=== PATIENT | female | born 1995 | race Hispanic/Latino ===

== ENCOUNTER 2018-09-25 09:23 | Outpatient (CLI) | payer OTHER ==
--- NOTE | 2018-09-25 11:48 | ULT ---
OBSTETRIC SONOGRAM: HISTORY: Second trimester. evaluation. FINDINGS: Multiple transabdominal sonographic views of the gravid uterus show a single intrauterine gestation, in variable presentation. The cervix is closed and 3.5 cm. Amniotic fluid is within normal limits. Grade 0 placenta is anterior. No gross intracranial abnormalities. Four-chamber heart shows motion at 147 beats per minute. spine and kidneys are intact as visualized. Three-vessel cord shows a normal insertion. Measurements are as follows: Biparietal diameter: 19 weeks 2 days Head circumference: 19 weeks 2 days Abdominal circumference: 19 weeks 4 days Femur length: 20 weeks 6 days Estimated date of delivery, based on today's sonogram, is 02/13/2019. Hadlock percentile is 96%. IMPRESSION: Single viable intrauterine gestation with estimated gestational age, based on today's sonogram, of 19 weeks 6 days. POS: RADHA
== END 2018-09-25 09:24 | disposition home or self-care (01) ==
LOC: BICULT 09:23
PROVIDERS: ATTEND Family Medicine
DX: Z34.82 Encounter for supervision of other normal pregnancy, second trimester (principal); Z3A.19 19 weeks gestation of pregnancy
CPT/HCPCS: 76805

== ENCOUNTER 2018-12-18 00:48 | Day surgery (SDC) | payer OTHER ==
--- NOTE | 2018-12-18 01:39 | PDOC.LDHP ---
Labor and Delivery H&P Chief complaint: decreased movement HPI: 23 y/o at 31w6d, patient of Dr. Catrachita Goldberg, presents with decreased FM this evening. Denies VB, LOF, ctx, or other concerns. ROS neg for HEENT, CV, pulm, GI, , neuro, psych, skin, musculoskeletal, or constitutional symptoms other than mentioned above. OB History Details: 3 prior LTCS Past Medical History: None Current medications: pre-marcus vitamins Previous surgical history: low tranverse CS (x3), cholecystectomy Allergies/Adverse Reactions: Allergies Allergy/AdvReac Type Severity Reaction Status Date / Time No Known Allergies Allergy Verified 10/23/14 05:43 Social history: none - Physical Exam Vital signs reviewed and normal: yes General: NAD, resting Lungs: nonlabored breathing Abdomen: gravid Extremeties: no edema FHT: category 1 (140s, mod variability, + accels, no decels) [place] contractions every: none - Assessment 23 y/o at 31w6d with decreased FM but reassuring status with reactive NST. Has felt baby move since arrival. - Plan -: D/c home with precautions. Advised to keep all appointments. Next appt .
[2018-12-18 02:19] VITALS: BMI 35.1
== END 2018-12-18 01:53 | disposition home health service (06) ==
LOC: L&D/OP 00:48
PROVIDERS: ATTEND Family Medicine
DX: O36.8130 Decreased fetal movements, third trimester, not applicable or unspecified (principal); Z3A.31 31 weeks gestation of pregnancy
CPT/HCPCS: 99282

== ENCOUNTER 2018-12-30 00:11 | Day surgery (SDC) | payer OTHER ==
[2018-12-30 00:50] VITALS: BP 128/74; TEMP 98.6; BMI 36.2
[2018-12-30 01:14] LABS: Amnisure Test No Membranes Rupture (No Rupture)
[2018-12-30 01:15] LABS: Amnisure Internal Control QC ACCEPTABLE (ACCEPTABLE)
--- NOTE | 2018-12-30 02:57 | SS ---
DATE OF ADMISSION: 12/30/2018 DATE OF DISCHARGE: 12/30/2018 REGULAR PHYSICIAN: Catrachita Goldberg M.D. EVALUATING PHYSICIAN: Maulik Love M.D. CHIEF COMPLAINT: Suspected leakage of fluid at home. HISTORY OF PRESENT ILLNESS: Ms. Chavira is a 23-year-old , G7, P3, AB 3 with an estimated date of confinement of 02/19/2019, who presents complaining of a small amount of suspected loss of fluid at home this evening. She denies vaginal bleeding or decreased movement. Her care has been with Dr. Catrachiat Goldberg. She is currently on Garret for a history of deliveries. She has an elective repeat section scheduled for 39 weeks. PAST OBSTETRICAL HISTORY: Includes 3 previous sections at 35, 36 and 39 weeks respectively. PAST SURGERY HISTORY: None. PAST SURGICAL HISTORY: x3 as well as gallbladder removal. CURRENT MEDICATIONS: Include: 1. vitamins. 2. Garret shot each week. ALLERGIES: NO KNOWN ALLERGIES. SOCIAL HISTORY: She denies tobacco, alcohol, or drug use. FAMILY HISTORY: Unremarkable. REVIEW OF SYSTEMS: Negative for nausea, vomiting, fever, chills, vaginal bleeding or decreased movement. PHYSICAL EXAMINATION: In triage, her vital signs were stable and she is afebrile. GENERAL: She is pleasant and in no acute distress. ABDOMEN: Soft, nontender, and gravid. heart rate tracing is stable and reassuring. No significant uterine contractions were seen. Pelvic exam shows the cervix to be closed, long, but soft. The vertex is presenting, but is ballotable. AmniSure returns showing no evidence of ruptured membranes. ASSESSMENT: 1. A 32 and 5/7 weeks intrauterine . 2. History of 3 previous sections. 3. No evidence of ruptured membranes. PLAN: The patient will be discharged to home with precautions. She is told to return should she notice contractions, bleeding or leakage of fluid. She voices understanding of her discharge instructions and was sent home in good condition. She states that she has an appoint with Dr. Catrachita Goldberg in the next 2 weeks. Job ID: [id number]
== END 2018-12-30 01:35 | disposition home or self-care (01) ==
LOC: L&D/OP 00:11
PROVIDERS: ATTEND Family Medicine
DX: Z03.79 Encounter for other suspected maternal and fetal conditions ruled out (principal)
CPT/HCPCS: 84112; 99283

== ENCOUNTER 2019-01-15 18:12 | Inpatient (IN) | payer OTHER ==
[2019-01-15 19:32] VITALS: BMI 37.5
[2019-01-15 20:01] LABS: Amnisure Test No Membranes Rupture (No Rupture)
[2019-01-15 20:02] LABS: Amnisure Internal Control QC ACCEPTABLE (ACCEPTABLE)
--- NOTE | 2019-01-15 20:25 | PDOC.LDHP ---
Labor and Delivery H&P Chief complaint: loss of fluid HPI: Patient of Catrachita Alvarado Time: 2024 Location: Triage Here for possible LOF 23 yo prior CS x 3 (HX abruption eith first), here for unsure LOF. No VB, no gush of water. EGA is 35 weeks 0 days Good FM, no HAs. She is on "progesterone". Review of Systems: complete ROS completed and as per HPI Current gestational age (weeks): 35 Dating criteria: last menstrual period Grav: 7 Para: 3 OB History Details: CS X3 Current complications: none Abnormal US findings: No Current medications: pre-marcus vitamins, other (Progesterone) Previous surgical history: low tranverse CS (X3) Allergies/Adverse Reactions: Allergies Allergy/AdvReac Type Severity Reaction Status Date / Time No Known Allergies Allergy Verified 01/15/19 19:33 Social history: none - Physical Exam Vital signs reviewed and normal: yes (125/76 67 98.2) General: NAD Heart: RRR Lungs: CTAB Abdomen: gravid Extremeties: no edema FHT: category 1 [place] contractions every: irregular and few - Assessment 35v weeks with prior CS x 3 here for possible LOF. Amnisure was negative. No evidence PTL clinically. - Plan Plan: observation in L&D (Sterile spec exam in process by me)
--- NOTE | 2019-01-15 20:47 | PDOC.EVN ---
Event Note - Event Note Event Note: EXAM follow up and admission plan: SSE exam reveals clear fluid per OS..ROM confirmed Sterile exam by me: /2 We will admit now for PPROM at 35 weeks: 1. Contact Dr Joselo Alvarado 2. Celestone now 3. Sono for EFW 4. NICU consult 5. Will need Repeat CS by Dr Joselo Alvarado when able (tonight or tomorrow, as per primary MD) ABX not indicated for latency after 34 weeks
[2019-01-15] MEDS ORDERED: Promethazine HCl 25 MG/ML VIAL IM PRN (20:48)
[2019-01-15] MEDS ORDERED: Butorphanol Tartrate 1 MG/ML VIAL SLOW IVP PRN (20:48)
[2019-01-15] MEDS ORDERED: CEFAZOLIN 2 GM in Premix Bag 1 BAG IVPB SCH (21:00)
[2019-01-15] MEDS ORDERED: Betamet Acet/Betamet Na Ph 30 MG/5 ML VIAL IM SCH (21:00)
[2019-01-15] MEDS: Lactated Ringer's 1,000 ML IV SCH (21:03)
[2019-01-15 21:14] LABS: Hemoglobin 8.8 g/dL (12.0-16.0); Mean Corpuscular HGB CONC 30.7 g/dL (32.0-36.0); Mean Corpuscular Hemoglobin 20.4 pg (27.0-31.0); Mean Corpuscular Volume 66.4 fL (78.0-98.0); Mean Platelet Volume 11.2 fL (7.4-10.4); Platelet Count 273 thou/uL (130-400); RBC Distribution Width 17.6 % (11.5-14.5); Red Blood Cell (RBC) Count 4.28 mill/uL (4.20-5.40); White Blood Cell (WBC) Count 9.4 thou/uL (4.8-10.8)
[2019-01-15 21:49] LABS: Syphilis Antibody Nonreactive (Nonreactive); Syphilis Antibody Index 0.03 S/CO (<1.00 Non-Reactive)
--- NOTE | 2019-01-15 22:33 | ULT ---
OB ULTRASOUND: 01/15/19 HISTORY: 35 weeks . Premature rupture of membranes. Evaluate positioning. FINDINGS: There is a single intrauterine gestation in cephalic presentation. Cardiac doppler demonstrates heart tones with a heart rate of 149 beats per minute. The placenta is located anteriorly without ev idence of placenta previa. Subjectively, there is a decrease in amniotic fluid volume and the amnioti c fluid index is also decreased at 4.1 cm. MEASUREMENTS: Biparietal diameter 8.93 cm 36 weeks, 1 day Head circumference 32.29 cm 36 weeks, 3 days Abdominal circumference 32.94 cm 36 weeks, 6 days Femur length 7.17 cm 36 weeks, 5 days The estimated gestational age by ultrasound is 35 weeks and 5 days with [facility] on 02/14/19. Gestational a ge by last menstrual period is 35 weeks. The estimated weight by ultrasound is 3008 grams (6 lb. 10 oz.). This represents 89th percentil e for weight. This examination was not performed evaluation of the anatomical structures. The lower uterine segment is not well seen due to shadowing from head structures. The cervix is not visualized. IMPRESSION: 1. Single intrauterine gestation in cephalic presentation with heart tones documented. 2. Placenta is located anteriorly without evidence of placenta previa. 3. Oligohydramnios with decrease in amniotic fluid index measuring 4.1 cm which corresponds to cristopher espinal's history of premature rupture of membranes. POS: RADHA
[2019-01-16 00:29] LABS: HBSAg Index 0.21 S/CO (0-0.99); HIV (1/2) Antibody/Antigen Non-Reactive (NonReactive); HIV 1/2 INDEX 0.12 S/CO (<1.00); Hep B Surf Ag Non-Reactive S/CO (NonReactive)
[2019-01-16] MEDS: Lactated Ringer's 1,000 ML IV SCH (00:35)
[2019-01-16 05:42] LABS: Hemoglobin 9.8 g/dL (12.0-16.0); Mean Corpuscular HGB CONC 30.7 g/dL (32.0-36.0); Mean Corpuscular Hemoglobin 20.8 pg (27.0-31.0); Mean Platelet Volume 10.8 fL (7.4-10.4); Platelet Count 236 thou/uL (130-400); RBC Distribution Width 18.7 % (11.5-14.5); Red Blood Cell (RBC) Count 4.72 mill/uL (4.20-5.40); White Blood Cell (WBC) Count 10.9 thou/uL (4.8-10.8)
[2019-01-16] MEDS: Bicitra 30 ML UDCUP PO SCH ×2 (07:17→07:18)
[2019-01-16] MEDS ORDERED: Ondansetron PF 4 MG/2 ML Vial ONE ×3 (07:18→12:42)
[2019-01-16] MEDS ORDERED: Oxytocin 10 UNITS/ML VIAL ONE (07:18)
[2019-01-16] MEDS ORDERED: ePHEDrine/0.9% NaCl/PF SYRINGE 50 mg/10 ml ONE (07:18)
[2019-01-16] MEDS ORDERED: MORPHINE 5 MG/10 ML PF VIAL ONE (07:19)
[2019-01-16] MEDS ORDERED: PHENYLEPHRINE-NS 100 MCG/ML 10 ML SYRINGE ONE (07:20)
[2019-01-16] MEDS ORDERED: Ondansetron HCl/PF 4 MG/2 ML Vial IVP PRN (08:18)
[2019-01-16] MEDS ORDERED: L&D-Morphine 4 MG/ML VIAL SLOW IVP PRN (08:18)
[2019-01-16] MEDS ORDERED: Promethazine HCl 25 MG/ML VIAL IM PRN (08:18)
[2019-01-16] MEDS ORDERED: Naloxone HCl 0.4 mg/ml Vial IV PRN (08:18)
[2019-01-16] MEDS ORDERED: Ketorolac Tromethamine 30 MG/ML VIAL IVP PRN (08:18)
[2019-01-16] MEDS ORDERED: diphenhydrAMINE 50 MG/ML VIAL IVP PRN (08:18)
[2019-01-16] MEDS ORDERED: Eucerin (Mineral Oil/Petrolatum,White) 30 gm Jar TOP PRN (08:18)
[2019-01-16] MEDS ORDERED: Promethazine HCl 25 MG SUPP PR PRN (08:18)
[2019-01-16] MEDS ORDERED: Meperidine HCl/PF 25 MG/ML VIAL SLOW IVP PRN (08:18)
[2019-01-16] MEDS ORDERED: Naloxone HCl 0.4 mg/ml Vial IVP PRN ×2 (08:18)
[2019-01-16] MEDS ORDERED: Ondansetron PF 4 MG/2 ML Vial IVP PRN ×2 (08:18→11:14)
[2019-01-16] MEDS ORDERED: HYDROmorphone 2 MG/ML VIAL SLOW IVP PRN (08:18)
[2019-01-16] MEDS ORDERED: Ketorolac Tromethamine 30 MG/ML VIAL IVP SCH (08:30)
[2019-01-16] MEDS ORDERED: Communication Order-Pharmacy FS SCH (08:30)
[2019-01-16] MEDS ORDERED: Ketorolac Tromethamine 30 MG/ML VIAL ONE ×2 (08:34→12:42)
[2019-01-16] MEDS ORDERED: FLU VACC QS 2018 (6-35MOS)/PF 0.25 ML SYRINGE IM ONE (09:00)
[2019-01-16] MEDS ORDERED: Lanolin Ointment 7 GM TUBE TOP PRN (11:14)
[2019-01-16] MEDS ORDERED: Acetaminophen 325 MG TAB PO PRN (11:14)
[2019-01-16] MEDS ORDERED: diphenhydrAMINE 25 MG CAP PO PRN (11:14)
[2019-01-16] MEDS ORDERED: NS / Oxytocin 40 units/1000ml 1,000 ML ONE ×2 (11:29→20:18)
[2019-01-16] MEDS ORDERED: Simethicone Chewable 80 MG TAB PO PRN (13:00)
--- NOTE | 2019-01-16 13:43 | OP ---
DATE OF PROCEDURE: 01/16/2019 PROCEDURE PERFORMED: Repeat low-transverse section. ASSISTANTS: Maulik Love MD and Dr. Jayla Martínez. ANESTHESIA: Spinal anesthetic. COMPLICATIONS: None. The patient is a 35-week intrauterine , who came in with spontaneous rupture of membranes approximately 10:0 a.m. the day prior to surgery with a history of previous section x3. Consents obtained. The patient is currently an active labor, taken to the operating room. After adequate spinal anesthesia, the patient was placed in supine position. Abdomen was prepped and draped in the usual sterile technique. A Pfannenstiel incision was made on the skin. Subcutaneous tissue opened with sharp dissection. Fascia opened with sharp dissection. Peritoneum opened with sharp and blunt dissection. Noted that the abdomen was still with a gravid uterus. An Lorenzo O rectractor was placed and a low- transverse incision was made on the uterus. Clear fluid was encountered. A viable male infant was delivered from vertex presentation without difficulty. Infant breathed and cried spontaneously. After approximately 15 seconds, the cord was clamped and cut and the was handed to the care of the Neonatology Team. Cord blood was obtained. The placenta was delivered manually and appeared intact. A wet lap was used to clean the uterus and ring forceps were placed over the hysterotomy edges and the hysterotomy was then closed in continuous fashion using 0 Monocryl. Hemostasis was adequate. There was no bleeding from the peritoneal edges or the uterus. The Lorenzo O retractor was removed and the peritoneal edges were then closed with 2-0 chromic suture in continuous fashion. On examination of the fascia, noted there was a defect at the right lateral edge, which was approximated with 0 Vicryl suture to realign the fascia in proper planes and then the fascia was then closed in continuous fashion using 0 Vicryl suture. Sponge and instrument counts were correct. There was no bleeding from the fascial edges. It was noted that the wound had been irrigated and the subcutaneous tissue was then closed with 2-0 chromic with 3 interrupted sutures. The skin was then closed using alek. The patient tolerated the procedure well, to go to recovery room in good condition. Note that the baby is a viable male infant, weight 3085 g or 6 pounds and 13 ounces. Apgars were 8 at one minute and 9 at 5 minutes. Noted there were moderate adhesions, but no other complications. Estimated blood loss approximately 500 mL. [facility] is pending at the time of this dictation. Job ID: [id number]
[2019-01-16] MEDS ORDERED: NS / Oxytocin 40 units/1000ml 1,000 ML IV SCH (21:30)
[2019-01-16] MEDS ORDERED: HYDROcodone/Acetaminophen 5/325 mg Tablet PO PRN (22:00)
[2019-01-16] MEDS: Docusate Calcium (SURFAK) 240 MG CAP PO SCH (23:37)
[2019-01-16] MEDS: Ferrous Sulfate 325 MG TAB PO SCH (23:38)
[2019-01-17 06:22] LABS: Hemoglobin 8.5 g/dL (12.0-16.0); Mean Corpuscular HGB CONC 30.5 g/dL (32.0-36.0); Mean Corpuscular Hemoglobin 21.1 pg (27.0-31.0); Mean Corpuscular Volume 69.1 fL (78.0-98.0); Mean Platelet Volume 10.2 fL (7.4-10.4); Platelet Count 237 thou/uL (130-400); RBC Distribution Width 18.7 % (11.5-14.5); Red Blood Cell (RBC) Count 4.04 mill/uL (4.20-5.40)
[2019-01-17] MEDS: Prenatal Vitamin 1 TAB PO SCH (08:38)
[2019-01-17] MEDS: Docusate Calcium (SURFAK) 240 MG CAP PO SCH ×2 (08:39→21:33)
[2019-01-17] MEDS: Ferrous Sulfate 325 MG TAB PO SCH ×2 (08:39→21:32)
[2019-01-17] MEDS: Ibuprofen 800 MG TAB PO SCH ×2 (08:41→17:04)
[2019-01-18] MEDS: Acetaminophen/Codeine 30-300mg Tablet PO PRN ×2 (00:27→13:02)
[2019-01-18] MEDS: Ibuprofen 800 MG TAB PO SCH ×2 (00:27→09:15)
[2019-01-18 01:12] VITALS: TEMP 98.4
[2019-01-18] MEDS: Ferrous Sulfate 325 MG TAB PO SCH (09:14)
[2019-01-18] MEDS: Prenatal Vitamin 1 TAB PO SCH (09:15)
[2019-01-18] MEDS: Docusate Calcium (SURFAK) 240 MG CAP PO SCH (09:15)
[2019-01-18 09:39] VITALS: BP 136/78
== END 2019-01-18 15:30 | disposition home or self-care (01) | DRG 788 ==
LOC: L&D/OP 18:12 → L&D 21:01 → 3SE 01-16 11:38
PROVIDERS: ADMIT Family Medicine; ATTEND Family Medicine
PROC: 30233N1 Transfusion of Nonautologous Red Blood Cells into Peripheral Vein, Percutaneous Approach (ICD-10-PCS; 2019-01-15)
PROC: 10D00Z1 Extraction of Products of Conception, Low, Open Approach (ICD-10-PCS; principal; 2019-01-16)
DX: O42.913 Preterm premature rupture of membranes, unspecified as to length of time between rupture and onset of labor, third trimester (principal); O99.02 Anemia complicating childbirth; D64.9 Anemia, unspecified; Z3A.35 35 weeks gestation of pregnancy; Z37.0 Single live birth
CPT/HCPCS: 36415; 36430; 51702; 76815; 84112; 85027; 86780; 86850; 86900; 86901; 87340; 87389; 99285; J0595; J0702; J1885; J2270; J2405; J2550; J2590; P9016